=== PATIENT | female | born 1950 | race Caucasian/White ===

== ENCOUNTER 2020-01-19 11:03 | Emergency (ER) | payer MEDICARE, OTHER ==
[~2020-01-19] VITALS: Ht 167.6 cm; Wt 108.9 kg
[~2020-01-19 11:03] MED LIST: CILOXAN 5 ML5 M1 OP; CYMBALTA30 MG PO; DIOVAN160 M2 PO; ENDOCET 325 MG-1 TA5 PO; EXCEDRIN MIGRAI1 TA1 PO; INVOKANA100 M1 PO; LANTUS100 U/ML SC; LEVOTHYROXINE0.05 MG PO; LORAZEPAM0.5 MG PO; NOVOLOG MIX 70/33 ML SC; PERCOCET 325 MG1 TA7 PO; SIMVASTATIN20 MG PO; TRAZODONE50 MG PO
[2020-01-19] MEDS ORDERED: IBU800 MG PO (13:59)
== END 2020-01-19 14:03 | disposition home or self-care (01) ==
LOC: ED 11:03
DX: S76.011A Strain of muscle, fascia and tendon of right hip, initial encounter (principal); Z88.2 Allergy status to sulfonamides; Z79.899 Other long term (current) drug therapy; Z79.82 Long term (current) use of aspirin; Z79.4 Long term (current) use of insulin; X50.1XXA Overexertion from prolonged static or awkward postures, initial encounter; Y93.89 Activity, other specified; Y92.89 Other specified places as the place of occurrence of the external cause; Y99.8 Other external cause status

== ENCOUNTER 2025-05-23 12:38 | Emergency (ER) | payer MEDICARE ==
[~2025-05-23] VITALS: Wt 89.4 kg
[~2025-05-23 12:38] MED LIST changes: +IBU800 MG PO; +NEURONTIN600 MG PO; +OMNICEF300 MG PO; +TRESIBA FL100 UNIT/1 SQ; +VITAMIN D350 MC2 GT
[2025-05-23] MEDS ORDERED: Glucagon Hydrochloride 1 MG SYR IV ONE (13:00)
[2025-05-23] MEDS ORDERED: Lactated Ringer's Solution 1,000 ML IV ONE (15:42)
[2025-05-23 15:43] VITALS: BP 169/64
[2025-05-23 16:11] LABS: BASO # 0.1 10*3/uL (0.0-0.1); BASO % 0.8 % (0.0-1.0); EOS # 0.2 10*3/uL (0.0-0.4); EOS % 2.3 % (1.0-4.0); MEAN CELL VOLUME 88.0 fl (81.0-99.0); MEAN CORPUSCULAR HGB 29.7 pg (27.0-31.0); MEAN PLATELET VOLUME 11.2 fl (9.6-12.3); MONO # 0.9 10*3/uL (0.1-1.0); MONO % 8.6 % (3.0-9.0); NEUT # 7.2 10*3/uL (2.3-7.9); NEUT % 68.0 % (47.0-73.0); NUCLEATED RED BLOOD CELL 0.0 % (0.0-0.0); NUCLEATED RED BLOOD CELL 0.0 10*3/uL (0.0-0.0); PLATELET COUNT AUTOMATED 226 10*3/uL (130-400); RED CELL DISTRI WIDTH 12.6 % (0-14.5)
[2025-05-23 16:40] LABS: BUN 18.0 mg/dl (9-23); SGPT/ALT 19.0 U/L (5-49)
[2025-05-23 16:49] VITALS: BP 116/66
[2025-05-23 17:04] VITALS: BP 117/63
[2025-05-23 17:18] VITALS: BP 104/62
[2025-05-23 17:34] VITALS: BP 122/61
[2025-05-23 17:49] VITALS: BP 105/78
[2025-05-23] MEDS ORDERED: Lidocaine Hydrochloride 2% 5 ML SDV IV ONE (18:53)
[2025-05-23] MEDS ORDERED: Ondansetron Hydrochloride 4 MG/2 ML VIAL IV ONE (18:53)
[2025-05-23] MEDS ORDERED: PROPOFOL 200 MG/20 ML VIAL IV ONE (18:53)
== END 2025-05-23 16:34 | disposition home or self-care (01) ==
LOC: ED 12:38
PROVIDERS: Nurse Anesthetist, Certified Registered
DX: K22.2 Esophageal obstruction (principal); Z90.722 Acquired absence of ovaries, bilateral; Z96.653 Presence of artificial knee joint, bilateral; Z88.2 Allergy status to sulfonamides; I10 Essential (primary) hypertension; E11.9 Type 2 diabetes mellitus without complications; F41.9 Anxiety disorder, unspecified; G43.909 Migraine, unspecified, not intractable, without status migrainosus